=== PATIENT | female | born 1970 | race Caucasian/White ===

== ENCOUNTER → 2022-05-29 | Outpatient (CLI) | payer OTHER ==
[2022-05-30 07:26] LABS: FOLLICLE STIMULATING HORMONE 2.6 mIU/mL (.)
== END | disposition home or self-care (01) ==
LOC: LAB 14:21
PROVIDERS: ATTEND Internal Medicine
DX: E03.9 Hypothyroidism, unspecified (principal); E04.2 Nontoxic multinodular goiter
CPT/HCPCS: 36415; 82024; 82533; 83001; 84146; 84402; 84403; 84439; 84443; 84481; 86376; 86800

== ENCOUNTER 2023-12-10 15:30 | Emergency (ER) | payer OTHER ==
[~2023-12-10] VITALS: Ht 182.9 cm; Wt 126.6 kg
[2023-12-10 15:46] VITALS: BP 161/99; PULSE 98; RESP 18; TEMP 98.4; O2SAT 100
[2023-12-10 16:45] VITALS: BP 145/87; PULSE 84; RESP 18; O2SAT 98
[2023-12-10 16:45] LABS: BASOPHIL % 0.2 % (0.0-0.2); EOSINOPHIL # 0.1 10^3/uL (0.0-0.2); EOSINOPHIL % 1.4 % (0.0-5.0); HEMATOCRIT(ML) 49.1 % (36.0-46.0); HEMOGLOBIN 16.5 g/dL (12.0-15.0); LYMPHOCYTES # 2.65 10^3/uL1 (1.0-4.8); MEAN CORP HGB 29.3 pg (26-34); MEAN CORP HGB CONCENTRATION 33.6 g/dL (33-36.5); MEAN CORP VOLUME 87.1 fL (78-100); MONOCYTES # 0.7 10^3/uL (0.3-0.8); MONOCYTES % 7.2 % (5.0-12.0); NEUTROPHIL # 5.6 10^3/uL (1.8-7.7); NEUTROPHILS % 61.5 % (41.0-85.0); PLATELET COUNT 224 10^3/uL (150-400); RED BLOOD CELL 5.64 10^6/uL (4.00-5.20); RED CELL DISTRIBUTION WIDTH 11.8 % (11.5-14.5); WHITE BLOOD CELL 9.2 10^3/uL (4.5-11.0)
[2023-12-10 16:46] LABS: +ADD MANUAL DIFF(NO CHRG) NO
[2023-12-10 17:27] LABS: ALBUMIN/GLOBULIN RATIO 1.081; ANION GAP 14.5; BUN/CREATININE RATIO 15.12 (10.0-20.0); CALCIUM 9.5 mg/dL (8.4-10.5); CARBON DIOXIDE 26.4 mmol/L (20.0-32); CREATININE SERUM 1.19 mg/dL (0.59-1.40); EST GFR, NON-AA 47.6 (>/=60); POTASSIUM 3.9 mmol/L (3.6-5.2)
[2023-12-10 17:55] VITALS: BP 144/69; PULSE 89; RESP 18; O2SAT 99
[2023-12-10] MEDS ORDERED: BACTRIM DS PO STA (18:03)
[2023-12-10] MEDS ORDERED: BACTRIM DS ONE (18:20)
== END 2023-12-10 18:28 | disposition home or self-care (01) ==
LOC: ER 15:30
DX: S91.331A Puncture wound without foreign body, right foot, initial encounter (principal); L03.115 Cellulitis of right lower limb; X58.XXXA Exposure to other specified factors, initial encounter; Y93.89 Activity, other specified; Y92.89 Other specified places as the place of occurrence of the external cause; Y99.8 Other external cause status
CPT/HCPCS: 99284; 73700; 73630; 80053; 85025; 36415; 87040 ×2; 83605; 84145; J8499

== ENCOUNTER 2025-08-23 08:49 | Emergency (ER) | payer OTHER ==
[~2025-08-23] VITALS: Ht 182.9 cm; Wt 125.6 kg
[2025-08-23 08:56] VITALS: BP 161/101; PULSE 125; RESP 18; TEMP 97.9; O2SAT 97
[2025-08-23 10:00] VITALS: BP 162/98; PULSE 105; RESP 18; O2SAT 99
[2025-08-23] MEDS ORDERED: 1/2 1000ML/KCL 20MEQ 1,000 ML IV STA (10:08)
[2025-08-23 10:18] LABS: LEUKOCYTE ESTERASE ,URINE NEGATIVE (NEGATIVE); NITRATE,URINE NEGATIVE (NEGATIVE)
[2025-08-23] MEDS ORDERED: NS 1000ML 1,000 ML ONE (10:19)
[2025-08-23 10:21] LABS: BASOPHIL # 0.0 10^3/uL (0.0-0.1); BASOPHIL % 0.2 % (0.2-1.2); EOSINOPHIL # 0.1 10^3/uL (0.0-0.2); EOSINOPHIL % 1.8 % (0.0-5.0); HEMATOCRIT(ML) 48.2 % (37.0-53.0); IG % 0.90 % (0.00-0.50); LYMPHOCYTES # 1.30 10^3/uL1 (1.0-4.8); LYMPHOCYTES % 29.0 % (24.0-44.0); MEAN CORP HGB 29.3 pg (26-34); MEAN CORP HGB CONCENTRATION 32.8 g/dL (33-36.5); MEAN CORP VOLUME 89.4 fL (78-100); MONOCYTES # 0.3 10^3/uL (0.3-0.8); MONOCYTES % 7.6 % (5.0-12.0); NEUTROPHIL # 2.7 10^3/uL (1.8-7.7); NEUTROPHILS % 60.5 % (41.0-85.0); RED BLOOD CELL 5.39 10^6/uL (4.50-5.90); RED CELL DISTRIBUTION WIDTH 13.1 % (11.5-14.5); WHITE BLOOD CELL 4.5 10^3/uL (4.5-11.0)
[2025-08-23 10:23] LABS: APPEARANCE,URINE CLEAR; UA COLOR YELLOW
[2025-08-23] MEDS: NS 1000ML 1,000 ML IV STA (10:27)
[2025-08-23 10:43] LABS: ALANINE AMINOTRANSFERASE(ML) 57.0 U/L (12-78); ALBUMIN(ML) 3.5 g/dL (3.4-5.0); CREATININE SERUM 1.12 mg/dL (0.59-1.40); EST GFR, NON-AA 68.3 (>/=60)
[2025-08-23 10:53] VITALS: BP 174/94; PULSE 112; RESP 18; O2SAT 98
[2025-08-23 11:44] VITALS: BP 167/88; PULSE 106; RESP 18; O2SAT 96
== END 2025-08-23 12:09 | disposition home or self-care (01) ==
LOC: EDSEX 08:49 → ER 08:49
DX: E11.65 Type 2 diabetes mellitus with hyperglycemia (principal)
CPT/HCPCS: 99284; 96360; 81003; 80053; 85025; 82948; 36415; 83605; 93005; J7030